=== PATIENT | female | born 1985 | race Caucasian/White ===

== ENCOUNTER 2024-09-20 12:34 | Outpatient (RCR) | payer OTHER, SELFPAY ==
--- NOTE | 2024-09-20 13:54 | PC.NURSE ---
In- 1240 Out- 1320 Reason for visit: pump set up/ education History: Shazia is a who had a vaginal delivery at 40 weeks gestation on 09/14/24. She states she did have a large bleed after delivery, but she did not receive a blood transfusion as a result. She reports she did attempt to breastfeed her first baby but she had latch issues and did not continue at the breast and chose to pump and bottle feed instead. She states she does take Zoloft for depression and Atarax for anxiety. Mom came in for the appointment today bc she needs help setting up her [employer] pumps, and also wants to be fitted for the correct size flange. Mom reports when she pumps with her pumps she usually gets about 2-3 oz per breast. Infant History: not present for the visit. Baby Zan was 40 weeks, and according to mom is back up to birthweight. She reports he has 6-10 wet diapers in a day and 4-5 stools. She currently pumps 4x a day with her pumps and feeds him with expressed breast milk and Gentlease formula by [employer]. She states he currenly takes about 1.5-2 oz every 3 hours. Observations: Mom reports fullness in her breasts before pumping. After our flange fitting and pumping session during the appointment, mom states her breasts feel empty. Mother was shown proper sizing and placement of flanges, pump settings, and cleaning of pump parts. Recommended 15 minutes of pumping both breasts simultaneously. Patient is aware that pumping should not hurt. She is encouraged to use the highest comfortable suction setting, gradually increasing the level as she pumps. Breast milk storage guidelines given. Mom is currently using a size 24 flange but she needs to move down to to a size 21 for a better fit. weight: 7#15 Lowest weight: 7#7 Last weight: 7#15 Plan of Care: Mother was shown proper sizing and placement of flanges, pump settings, and cleaning of pump parts. Mom is currently only pumping 4 times a day. Encouraged mom to increase her pumping to every 3-4 hours or 6-8 times a day to increase her supply if she so desires. Mom is using formula to supplement when she does not have enough expressed breast milk. Recommended 15 minutes of pumping both breasts simultaneously. Patient is aware that pumping should not hurt. She is encouraged to use the highest comfortable suction setting, gradually increasing the level as she pumps. Breast milk storage guidelines given & breastmilk storage bags given to mom to take home. Follow up plans: Shazia was encouraged to continue to follow up with Dr. Maldonado as needed. Call back to the office if there are any questions or concerns. Shazia may return for another appointment if it is needed at any time.
== END 2024-12-19 23:59 | disposition home or self-care (01) ==
LOC: ANHOBOP 12:34
PROVIDERS: PCP Nurse Practitioner Family; Visit Provider Pediatrics
DX: Z39.1 Encounter for care and examination of lactating mother (principal)
CPT/HCPCS: 99211; G0463